=== PATIENT | female | born 1970 | race Caucasian/White ===

== ENCOUNTER 2019-01-20 14:08 | Emergency (ER) | payer BC ==
[2019-01-20 14:38] VITALS: BP 120/79
--- NOTE | 2019-01-20 14:42 | UC ---
Complaint Female HPI - HPI Summary HPI Summary: Pain with urination, blood in urine onset last night - History Of Current Complaint Chief Complaint: UCGU Stated Complaint: URINARY BLOOD IN URINE Time Seen by Provider: 01/20/19 14:27 Hx Obtained From: Patient Hx Last Menstrual Period: 2 yrs ?: No Onset/Duration: Sudden Onset, Lasting Days Timing: Intermittent Severity Initially: Mild Severity Currently: Moderate Pain Intensity: 5 Character: Burning Aggravating Factor(s): Urination - Allergies/Home Medications Allergies/Adverse Reactions: Allergies Allergy/AdvReac Type Severity Reaction Status Date / Time environment Allergy Congestion Uncoded 01/20/19 14:38 Home Medications: Home Medications Multivitamin [Once Daily] 1 each PO DAILY 01/20/19 [History Confirmed 01/20/19] PMH/Surg Hx/FS Hx/Imm Hx Previously Healthy: Yes - Surgical History Surgical History: Yes Surgery Procedure, Year, and Place: b/l hip replacement [facility] ; tubal ligation - Family History Known Family History: Positive: Hypertension - Social History Alcohol Use: Occasionally Substance Use Type: None Smoking Status (MU): Never Smoked Tobacco Review of Systems All Other Systems Reviewed And Are Negative: Yes Genitourinary: Positive: Dysuria, Hematuria, Urgency Physical Exam Triage Information Reviewed: Yes Appearance: Well-Appearing, Well-Nourished, Pain Distress Vital Signs: Initial Vital Signs Temp 98.9 F 01/20/19 14:31 Pulse 79 01/20/19 14:31 Resp 20 01/20/19 14:31 BP 120/79 01/20/19 14:31 Pulse Ox 100 01/20/19 14:31 Vital Signs Reviewed: Yes Eye Exam: Normal ENT Exam: Normal Dental Exam: Normal Neck exam: Normal Respiratory Exam: Normal Cardiovascular Exam: Normal Abdomen Description: Positive: Nontender, No Organomegaly, Soft, CVA Tenderness (R) - neg, CVA Tenderness (L) - neg Bowel Sounds: Positive: Present Musculoskeletal Exam: Normal Neurological Exam: Normal Psychological Exam: Normal Skin Exam: Normal Complaint Female Dx - Course Course Of Treatment: hx obtained, exam performed ,meds reviewed, UA obtained. - Differential Dx/Diagnosis Differential Diagnosis/HQI/PQRI: Urinary Tract Infection Provider Diagnosis: UTI (urinary tract infection) Discharge ED - Sign-Out/Discharge Documenting (check all that apply): Patient Departure All imaging exams completed and their final reports reviewed: No Studies - Discharge Plan Condition: Stable Disposition: HOME Prescriptions: Nitrofurantoin Monohyd/M-Cryst [Macrobid 100 mg Capsule] 100 mg PO BID #14 cap Patient Education Materials: Urinary Tract Infection in Women (ED) Referrals: Sunshine Alejandro MD [Primary Care Provider] - Additional Instructions: 1. take the medication as prescribed. 2. Increase fluid intake and get plenty of rest. 3. FOllow up if not improving. - Billing Disposition and Condition Condition: STABLE Disposition: Home
== END 2019-01-20 15:36 | disposition home or self-care (01) ==
LOC: UCCORT 14:08 → MERGE 14:08 → UCCORT 15:36
DX: N39.0 Urinary tract infection, site not specified (principal); R31.9 Hematuria, unspecified; Z96.643 Presence of artificial hip joint, bilateral
CPT/HCPCS: 81003; 87077; 87086; 87186; 99212; G0463